=== PATIENT | female | born 1975 | race Caucasian/White ===

== ENCOUNTER 2017-05-08 09:33 | Emergency (ER) | END 2017-05-08 15:38 | disposition home or self-care (01) ==

== ENCOUNTER 2017-11-02 10:38 | Emergency (ER) | END 2017-11-02 14:02 | disposition home or self-care (01) ==

== ENCOUNTER 2018-05-30 15:54 | Emergency (ER) | payer SELFPAY ==
[~2018-05-30] VITALS: Ht 160 cm; Wt 65.0 kg
[~2018-05-30 15:54] MED LIST: IBUP-1542 PO
[2018-05-30 16:20] VITALS: BP 104/74; PULSE 71; RESP 18; Ht 160 cm; Wt 65.0 kg
== END 2018-05-30 18:01 | disposition left against medical advice (07) ==
LOC: FTE 15:54
DX: Z53.21 Procedure and treatment not carried out due to patient leaving prior to being seen by health care provider (principal)

== ENCOUNTER 2019-01-10 08:10 | Emergency (ER) | payer MEDICAID, OTHER ==
[~2019-01-10] VITALS: Ht 162.6 cm; Wt 58.8 kg
[~2019-01-10 08:10] MED LIST changes: +BUTA1CAP38 PO; +IBUP-1541 PO; +ONDA4TAB14 PO
[2019-01-10 08:15] VITALS: Ht 162.6 cm; Wt 58.8 kg
[2019-01-10 11:35] VITALS: BP 109/78; PULSE 87; RESP 18
== END 2019-01-10 11:36 | disposition home or self-care (01) ==
LOC: E/R 08:10
DX: K80.20 Calculus of gallbladder without cholecystitis without obstruction (principal); R51 Headache
CPT/HCPCS: 76705; 80053; 81001; 81025; 82465; 83690; 85025; Z7502